=== PATIENT | female | born 1985 | race Two or more races ===

== ENCOUNTER 2017-12-25 22:51 | Emergency (ER) | payer SELFPAY ==
[~2017-12-25] VITALS: Ht 162.6 cm; Wt 99.8 kg
--- NOTE | 2017-12-25 23:29 | NUR ---
PT PRESENTED TO THE ER WITH A C/O COUGH AND CONGESTION X 3 WEEKS. PT COUGHS AND C/O PAIN WITH INSPIRATION. PT IS C/O CP AND THROAT PAIN WITH COUGH. PT IS C/O PAIN 10/
[2017-12-25] MEDS ORDERED: GUAIFENESIN/CODEINE 10 ML UDC ONE (23:49)
[2017-12-25] MEDS ORDERED: predniSONE 20 MG TABLET ONE (23:50)
[2017-12-25] MEDS ORDERED: PSEUDOEPHEDRINE HCL 30 MG TABLET ONE (23:50)
[2017-12-25] MEDS ORDERED: AZITHROMYCIN 250 MG TABLET ONE (23:50)
[2017-12-26] MEDS ORDERED: GUAIFENESIN/CODEINE 10 ML UDC PO PRN
[2017-12-26] MEDS ORDERED: predniSONE 20 MG TABLET PO ONE
[2017-12-26] MEDS ORDERED: AZITHROMYCIN 250 MG TABLET PO ONE
[2017-12-26] MEDS ORDERED: PSEUDOEPHEDRINE HCL 30 MG TABLET PO ONE
[2017-12-26] MEDS ORDERED: ALBUTEROL FS 2.5 MG/3 ML VIAL.NEB NEB ONE
[2017-12-26] MEDS ORDERED: IPRATROPIUM NEB FS 0.5 MG/2.5 ML AMPUL.NEB ONE (00:06)
[2017-12-26] MEDS ORDERED: ALBUTEROL FS 2.5 MG/3 ML VIAL.NEB ONE (00:06)
[2017-12-26 01:12] VITALS: BP 110/56
--- NOTE | 2017-12-26 01:16 | NUR ---
PT APPEARS TO BE FEELING BETTER. VSS. PT IS AWAITING INFLUENZA RESULTS.
== END 2017-12-26 02:00 | disposition home or self-care (01) ==
LOC: ER 22:52
DX: J20.9 Acute bronchitis, unspecified (principal); E66.9 Obesity, unspecified
CPT/HCPCS: 71045; 87804 ×2; 94640; 99285; A4606; J7512; Z7610; 87400